=== PATIENT | male | born 1980 | race Two or more races ===

== ENCOUNTER 2020-05-12 09:42 | Emergency (ER) | payer OTHER ==
[~2020-05-12] VITALS: Ht 170.2 cm; Wt 59.9 kg
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
--- NOTE | 2020-05-12 10:53 | NUR ---
PT TRANSFERED TO ED BED 10. PLACED ON MONITOR. HOB KEPT ELEVATED. ON MONITOR. C/O HEADACHE. NO C/O NAUSEA AND VOMITING. WILL CONTINUE TO MONITOR.
[2020-05-12 11:11] LABS: BASOPHILS % (AUTO) 0.2 % (0.0-2.0); EOSINOPHILS % (AUTO) 0.5 % (0.0-6.0); HEMATOCRIT 42 % (39-51); HEMOGLOBIN 14.2 g/dL (13.5-17.5); LYMPHOCYTES # (AUTO) 0.7 /CMM (0.8-4.8); LYMPHOCYTES % (AUTO) 8.9 % (20.0-44.0); MEAN CORPUSCULAR HGB CONC 34 g/dl (31.0-36.0); MEAN CORPUSCULAR VOLUME 94 fL (80-96); MONOCYTES # (AUTO) 0.6 /CMM (0.1-1.30); NEUTROPHILS # (AUTO) 6.4 /CMM (1.8-8.9); NEUTROPHILS % (AUTO) 82.4 % (43.0-81.0); PLATELET COUNT (AUTO) 372 /CMM (150-450); RED BLOOD CELL COUNT(AUTO) 4.43 MIL/uL (4.5-6.0); WHITE BLOOD COUNT (AUTO) 7.7 K/uL (4.3-11.0)
[2020-05-12 11:14] LABS: CALCIUM, SERUM 8.8 mg/dL (8.5-10.1); CREATININE 0.8 mg/dL (0.6-1.3)
[2020-05-12 11:20] LABS: ALBUMIN 3.7 g/dL (3.4-5.0); BILIRUBIN,DIRECT 0.1 mg/dL (0.0-0.2); BILIRUBIN,TOTAL 0.5 mg/dL (0.2-1.0); TOTAL PROTEIN, SERUM 8.5 g/dL (6.4-8.2)
[2020-05-12] MEDS ORDERED: IOHEXOL-300 100 ML VIAL IV ONE (11:45)
[2020-05-12] MEDS ORDERED: IV NS 0.9% 250 ML IV ONE (11:46)
--- NOTE | 2020-05-12 11:48 | NUR ---
PT TO RADIOLOGY FOR CHEST, ABDOMEN AND PELVIC CT SCAN VIA [facility].
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
--- NOTE | 2020-05-12 12:32 | NUR ---
CALLED [facility] ER AND LEFT FOR HIGHER LEVEL OF CARE TRANSFER
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
--- NOTE | 2020-05-12 13:53 | NUR ---
CALL BACK FROM ELVIA AT [facility], DR MANI CORNELL IS UNABLE TO TAKE PATIENT SINCE THEY HAVE NO BED
--- NOTE | 2020-05-12 19:30 | NUR ---
REC'D PT IN BED RESTING COMFORTABLY. BREATHING EVENLY. NO OSB. NAD. NO C/O PAIN OR DOSCOMFORT . VSS. NO FACIAL DROOP. WILL CONT TO MONITOR
[2020-05-12] MEDS: IV D5/ 0.9% NACL 1,000 ML IV PRN ×2 (22:59→23:08)
[2020-05-12] MEDS ORDERED: ONDANSETRON HCL/PF 4 MG/2 ML VIAL ONE (23:02)
[2020-05-12] MEDS ORDERED: MORPHINE SULFATE INJ 4 MG/ML DISP.SYRIN ONE (23:02)
--- NOTE | 2020-05-12 23:08 | NUR ---
PT AWAKE, ALERT AND RESPONSIVE TO QUESTIONS. REQUESTING FOOD. SPOKE TO PT AND MADE HIM AWARE OF HIS SITUATION AND MD'S ORDER ABOUT HIS NPO STATUS. INSTEAD PT WAS STARTED ON IVF HYDRATION. ALSO PT W. C/O FRONTAL H/A. DR SPRAGUE MADE AWARE W. A NEW ORDER FOR MORPHINE 4MG AND ZOFRAN 4MG IV. NOTED AND CARRIED OUT. PT REMAINED ON MONITOR W/ STABLE VS. HOB ELVATED AND SRs UP. BED IN LOW LOCKED POSITION AND CALL LIGHT WITHIN REACH. WILL CONT TO MONITOR ,
[2020-05-12] MEDS ORDERED: MORPHINE SULFATE INJ 2 MG/ML DISP.SYRIN IV ONE (23:30)
[2020-05-12] MEDS ORDERED: ONDANSETRON HCL/PF - ER 4 MG/2 ML VIAL IV ONE (23:30)
--- NOTE | 2020-05-13 00:14 | NUR ---
Patient is resting comfortably in bed with eyes closed. Easily aroused. VSS
--- NOTE | 2020-05-13 11:30 | NUR ---
DR PEGUERO CALLED FOR DR SORTO
--- NOTE | 2020-05-13 12:34 | NUR ---
PROVIDED W FOOD TRAY. TOLERATING PO WELL.
--- NOTE | 2020-05-13 12:56 | NUR ---
SHERRY STYLES AT BEDSIDE
--- NOTE | 2020-05-13 13:24 | NUR ---
IV removed. Catheter intact and site benign. Pressure and 4x4 applied to site. No bleeding noted. Patient given written and verbal discharge instructions. Patient verbalizes understanding of instructions. Refuses offer of care home placement. Patient given list of available shelters in surrounding area. Al belongings brought by patient. In proper clothing upon DC. Name band removed.
--- NOTE | 2020-05-13 13:28 | NUR ---
ASSISTED TO WAITING ROOM VIA WHEELCHAIR BY SECURITY. AWAITING TRANSPO INFO FROM SHERRY.
[2020-05-13 13:31] VITALS: BP 119/79
--- NOTE | 2020-05-13 13:57 | NUR ---
Social Work Consult: SW consult was requested by ER staff regarding the pts discharge transportation. ER Nurse informed the SW that the pt was requesting a taxi for his discharge transportation. SW went to the ER and met with the pt at bedside. Pt stated that he resides at [facility] in [place] as part of [facility]. Pt stated that he needed to be transported via taxi because pt states, "I feel light headed and dizzy. I can barely walk and I do not even know where I am." SW stated that she would need to confirm with a staff member at the [facility] that he can return before assisting him with a taxi. SW called the Crew Truck Driver, Liz ([phone]), and confirmed that the pt can return to the facility. SW informed the pts nurse and arranged a taxi. SW also had the pt sign a homeless waiver and provided the pt with homeless resources including [phone] [facility] Long-Term Program list. SW provided patient with a copy of the [facility] homeless directory which provides information on locations for hot meals, sack lunches, food pantries, and showers. SHERRY provided an additional list of mental health clinics: [facility] [address] [place] [address] ([phone]); [facility] [address] [place] [address] ([phone]); a list of medical clinics; [facility] 6551 [facility] [address], [place]. [place], ; [facility] 6801 [facility], [address], [place]. SHERRY Provided [facility] [address] [place] [address]: ([phone]). Patient was provided with a brief substance abuse intervention and referred to the following substance abuse programs: [facility] Substance Abuse Self-helpline ([phone]); [facility] [address] [place] [address] ([phone]); [facility] [address] [facility] [address] ([phone]); [facility] ([phone]); [facility] ([phone]); [facility] ([phone]); [facility] ([phone]).
== END 2020-05-13 13:31 | disposition home or self-care (01) ==
LOC: ER 09:47
DX: S02.119A Unspecified fracture of occiput, initial encounter for closed fracture (principal); S06.5X9A Traumatic subdural hemorrhage with loss of consciousness of unspecified duration, initial encounter; Y09 Assault by unspecified means; Y92.89 Other specified places as the place of occurrence of the external cause; J45.909 Unspecified asthma, uncomplicated; Z88.0 Allergy status to penicillin; Z59.0 Homelessness; F19.10 Other psychoactive substance abuse, uncomplicated; Z20.828 Contact with and (suspected) exposure to other viral communicable diseases
CPT/HCPCS: 36415; 70450 ×2; 71045; 71260; 72125; 74177; 80048; 80076; 85025; 85730; 86850; 87426; 96374; 96375; 99291; C9803; J2270; J2405 ×2; J7042; J7050; Q9967

== ENCOUNTER 2020-11-03 12:41 | Emergency (ER) | payer OTHER ==
[~2020-11-03] VITALS: Ht 170.2 cm; Wt 59.9 kg
[2020-11-03 13:05] LABS: LYMPHOCYTES # (AUTO) 1.2 /CMM (0.8-4.8); LYMPHOCYTES % (AUTO) 28.3 % (20.0-44.0); MONOCYTES # (AUTO) 0.6 /CMM (0.1-1.30); NEUTROPHILS # (AUTO) 2.2 /CMM (1.8-8.9)
[2020-11-03 13:09] LABS: BASOPHILS % (AUTO) 0.5 % (0.0-2.0); EOSINOPHILS % (AUTO) 3.9 % (0.0-6.0); HEMATOCRIT 39 % (39-51); MEAN CORPUSCULAR HGB CONC 33 g/dl (31.0-36.0); MEAN CORPUSCULAR VOLUME 91 fL (80-96); MONOCYTES % (AUTO) 14.5 % (2.0-12.0); NEUTROPHILS % (AUTO) 52.8 % (43.0-81.0); PLATELET COUNT (AUTO) 393 /CMM (150-450); RED BLOOD CELL COUNT(AUTO) 4.26 MIL/uL (4.5-6.0); WHITE BLOOD COUNT (AUTO) 4.2 K/uL (4.3-11.0)
[2020-11-03 13:12] LABS: CALCIUM, SERUM 8.8 mg/dL (8.5-10.1); CARBON DIOXIDE 31 mmol/L (21-32); CHLORIDE 103 mmol/L (98-107); CREATININE 0.8 mg/dL (0.6-1.3); GLUCOSE 99 mg/dL (74-106); POTASSIUM 3.6 mmol/L (3.5-5.1); SODIUM SERUM 140 mmol/L (136-145); UREA NITROGEN, BLOOD 14 mg/dL (7-18)
[2020-11-03 13:17] LABS: ALANINE AMINOTRANSFERASE 54 U/L (12-78); ALBUMIN 3.3 g/dL (3.4-5.0); ALKALINE PHOSPHATASE 186 U/L (46-116); ASPARTATE AMINOTRANSFERASE 31 U/L (15-37); BILIRUBIN,DIRECT 0.1 mg/dL (0.0-0.2); BILIRUBIN,TOTAL 0.1 mg/dL (0.2-1.0); TOTAL PROTEIN, SERUM 7.8 g/dL (6.4-8.2)
[2020-11-03 13:18] LABS: ACETAMINOPHEN < 0 ug/ml (10-30); ALCOHOL, BLOOD < 3 mg/dL (0-0)
[2020-11-03 13:34] VITALS: BP 129/73
== END 2020-11-03 13:35 | disposition home or self-care (01) ==
LOC: ER 12:54
DX: F15.10 Other stimulant abuse, uncomplicated (principal); J45.909 Unspecified asthma, uncomplicated; Z88.0 Allergy status to penicillin; Z60.2 Problems related to living alone; Z59.0 Homelessness
CPT/HCPCS: 36415; 80048-TC; 80076-TC; 85025-TC; G0480